=== PATIENT | male | born 1950 | race Caucasian/White ===

== ENCOUNTER 2019-11-23 10:07 | Day surgery (SDC) | payer MEDICARE ==
[~2019-11-23] VITALS: Ht 177.8 cm; Wt 109.0 kg
[~2019-11-23 10:07] MED LIST: ASPI-1111 PO; LISI-662 PO; SODIUM CHLORIDE 0.9% 1,000 ML IV ONE; SODIUM CHLORIDE 0.9% 1,000 ML ONE
[2019-11-23] MEDS ORDERED: LIDOCAINE/PF 2% 5 ML VIAL IM ONE (10:08)
[2019-11-23] MEDS ORDERED: PROPOFOL 1% 20 ML VIAL IVP ONE (10:08)
[2019-11-23 10:59] LABS: GLUCOMETER DEV NAME(LOC) SDS.; GLUCOSE,POINT OF CARE 106 MG/DL (70-110)
== END 2019-11-23 13:10 | disposition home or self-care (01) ==
LOC: SURGERY 10:07
PROVIDERS: ATTEND Student in an Organized Health Care Education/Training Program
DX: Z12.11 Encounter for screening for malignant neoplasm of colon (principal); D12.5 Benign neoplasm of sigmoid colon; D12.2 Benign neoplasm of ascending colon; D12.3 Benign neoplasm of transverse colon; K57.30 Diverticulosis of large intestine without perforation or abscess without bleeding; E78.00 Pure hypercholesterolemia, unspecified; E11.9 Type 2 diabetes mellitus without complications; I10 Essential (primary) hypertension; Z79.82 Long term (current) use of aspirin; Z79.899 Other long term (current) drug therapy; Z11.59 Encounter for screening for other viral diseases; Z20.828 Contact with and (suspected) exposure to other viral communicable diseases
CPT/HCPCS: 45380; 45381; 45385; 82962; 87635; 88305; C1769; J2704; J3490; J7030